=== PATIENT | female | born 1990 | race African-American/Black ===

== ENCOUNTER 2017-04-03 19:44 | Emergency (ER) | payer MEDICAID ==
[2017-04-03] MEDS ORDERED: EPINEPHRINE 1 MG/ML, 1ML SQ ONE (20:00)
[2017-04-03] MEDS ORDERED: FAMOTIDINE 20 MG TABLET PO ONE (20:00)
[2017-04-03] MEDS ORDERED: DIPHENHYDRAMINE 25 MG CAPSULE PO ONE (20:00)
[2017-04-03] MEDS ORDERED: EPINEPHRINE 1 MG/ML, 1ML ONE (20:04)
[2017-04-03] MEDS ORDERED: DIPHENHYDRAMINE 25 MG CAPSULE ONE (20:05)
[2017-04-03] MEDS ORDERED: FAMOTIDINE 20 MG TABLET ONE ×2 (20:05)
[2017-04-03 21:48] VITALS: BP 122/77
== END 2017-04-03 22:02 | disposition home or self-care (01) ==
LOC: ED 21:56
DX: L50.0 Allergic urticaria (principal)
CPT/HCPCS: 96372; 99291; J0171; J7512; Q0163

== ENCOUNTER 2019-01-08 10:36 | Emergency (ER) | payer MEDICAID, OTHER ==
[~2019-01-08] VITALS: Ht 160 cm; Wt 55.2 kg
[2019-01-08 10:48] VITALS: BP 147/102
[2019-01-08] MEDS ORDERED: AZITHROMYCIN 500 MG TABLET PO ONE (11:00)
[2019-01-08] MEDS ORDERED: CEFTRIAXONE 250 MG IM ONE (11:00)
[2019-01-08] MEDS ORDERED: metroNIDAZOLE 500 MG TABLET ONE (11:09)
[2019-01-08] MEDS ORDERED: AZITHROMYCIN 500 MG TABLET ONE (11:09)
[2019-01-08] MEDS ORDERED: CEFTRIAXONE 250 MG ONE (11:09)
[2019-01-08] MEDS ORDERED: metroNIDAZOLE 500 MG TABLET PO ONE (11:30)
== END 2019-01-08 12:19 | disposition home or self-care (01) ==
LOC: ED 11:42
DX: A59.9 Trichomoniasis, unspecified (principal)
CPT/HCPCS: 96372; 99283; J0696